=== PATIENT | male | born 1955 | race Caucasian/White ===

== ENCOUNTER 2019-10-07 06:28 | Day surgery (SDC) | payer MEDICAID ==
[2019-10-07] MEDS ORDERED: Lactated Ringers 1,000 ML IV SCH (07:00)
[2019-10-07] MEDS ORDERED: Propofol 200 MG/20 ML SDV ONE (07:13)
[2019-10-07] MEDS ORDERED: Midazolam 1 MG/ML 2 ML SDV ONE (07:13)
[2019-10-07] MEDS ORDERED: fentaNYL 100 MCG/2 ML SDV ONE (07:13)
[2019-10-07 09:02] VITALS: BP 125/77; PULSE 82
--- NOTE | 2019-10-07 15:34 | OR ---
DATE OF PROCEDURE: 10/07/2019 SURGEON: Josiah Espinal MD PREOPERATIVE DIAGNOSIS: Colon cancer screening. POSTOPERATIVE DIAGNOSES: Diverticulosis, small right colon polyp. PROCEDURE: Colonoscopy to the cecum with biopsy resection of small right colon polyp. ANESTHESIA: IV anesthesia with monitored anesthesia care. INDICATION: This 64-year-old white male is referred for a colonoscopy for colon cancer screening. He says his last colonoscopic exam was done about 10 years ago. I counseled him for the procedure including risks and alternatives, and he gave his informed consent to proceed. DESCRIPTION OF PROCEDURE: The patient was placed in the left lateral decubitus position. IV anesthesia was administered by the Anesthesia Service. Time-out was held. A rectal exam was performed, which was unremarkable. The flexible video Olympus colonoscope was introduced through his anus, up his rectum, out his colon all the way to the cecum. En route, we saw a very few scattered left-sided diverticula. There was no bleeding or inflammation associated with any of them. Once the cecum was reached, the scope was slowly withdrawn examining the mucosa throughout. In the right colon, we saw a small polyp which was removed with a couple of bites of biopsy forceps. The scope was withdrawn further with no other new lesions noted. The scope was retroflexed in the rectum with the distal rectum appearing unremarkable. The scope was straightened and removed. He tolerated the procedure well. Josiah Espinal MD /[id number]
== END 2019-10-07 09:09 | disposition home or self-care (01) ==
LOC: JP.SDS 06:28
PROVIDERS: ATTEND Surgery
DX: Z12.11 Encounter for screening for malignant neoplasm of colon (principal); D12.2 Benign neoplasm of ascending colon; K57.30 Diverticulosis of large intestine without perforation or abscess without bleeding; I10 Essential (primary) hypertension; G47.33 Obstructive sleep apnea (adult) (pediatric); E66.9 Obesity, unspecified; Z99.89 Dependence on other enabling machines and devices
CPT/HCPCS: 88305; J2250; J2704; J3010

== ENCOUNTER 2025-05-23 14:45 | Emergency (ER) | payer MEDICARE ==
[2025-05-23] MEDS ORDERED: Sodium Chloride 0.9% 10 ML Syringe FLUSH PRN (15:41)
[2025-05-23 16:01] LABS: BASOPHILS ABSOLUTE AUTO 0.05 K/uL (0.00-0.10); BASOPHILS PERCENT AUTO 0.9 % (0.1-1.3); EOSINOPHILS ABSOLUTE AUTO 0.11 K/uL (0.00-0.40); EOSINOPHILS PERCENT AUTO 1.9 % (0.0-5.4); IMMATURE GRAN PERCENT AUTO 0.3 % (0.0-0.7); LYMPHOCYTES ABSOLUTE AUTO 1.03 K/uL (0.8-3.3); LYMPHOCYTES PERCENT AUTO 17.7 % (11.4-47.7); MONOCYTES ABSOLUTE AUTO 0.46 K/uL (0.20-0.90); MONOCYTES PERCENT AUTO 7.9 % (3.3-12.6); NEUTROPHILS ABSOLUTE AUTO 4.16 K/uL (1.0-7.6); NEUTROPHILS PERCENT AUTO 71.3 % (40.0-78.1); PLATELET COUNT,PLT 138 K/uL (130-375); RED BLOOD CELL COUNT 5.38 M/uL (4.14-5.76); WHITE BLOOD CELL COUNT,WBC 5.8 K/uL (3.2-11.0)
[2025-05-23 16:06] LABS: IMMATURE GRAN ABSOLUTE AUTO 0.02 K/uL (0.00-0.23)
[2025-05-23 16:19] LABS: A/G RATIO 1.3 (1.2-2.2); ALANINE AMINOTRANSFERASE,ALT 63 U/L (12-78); ASPARTATE AMNIOTRANSFERASE,AST 45 U/L (15-37); BILIRUBIN TOTAL 0.6 mg/dL (0.2-1.0); BLOOD UREA NITROGEN,BUN 16 mg/dL (7-18); CARBON DIOXIDE,CO2 29 mmol/L (21-32); CHLORIDE,CL 106 mmol/L (100-108); CREATININE 1.1 mg/dL (0.8-1.3); EST CRCL DRUG DOSING (CG) 67.50 mL/min; ESTIMATED GFR 73 mL/min (>60); GLUCOSE RANDOM 129 mg/dL (74-106); POTASSIUM,K 3.5 mmol/L (3.6-5.2); PROTEIN TOTAL,TP 6.8 g/dL (6.4-8.2); SODIUM,NA 142 mmol/L (140-148)
[2025-05-23 16:43] VITALS: BP 123/61; PULSE 67
== END 2025-05-23 17:47 | disposition home or self-care (01) ==
LOC: JP.ED 14:45
DX: R55 Syncope and collapse (principal); I10 Essential (primary) hypertension; E66.9 Obesity, unspecified; Z79.899 Other long term (current) drug therapy
CPT/HCPCS: 36415; 80053; 83735; 85025; 86140; 93005; 96360; 96361; 99284; J7030

== ENCOUNTER 2025-10-04 09:58 | Emergency (ER) | payer MEDICARE ==
[2025-10-04 10:34] LABS: BASOPHILS ABSOLUTE AUTO 0.06 K/uL (0.00-0.10); BASOPHILS PERCENT AUTO 1.1 % (0.1-1.3); EOSINOPHILS ABSOLUTE AUTO 0.16 K/uL (0.00-0.40); EOSINOPHILS PERCENT AUTO 3.0 % (0.0-5.4); IMMATURE GRAN PERCENT AUTO 0.4 % (0.0-0.7); LYMPHOCYTES ABSOLUTE AUTO 1.12 K/uL (0.8-3.3); LYMPHOCYTES PERCENT AUTO 20.7 % (11.4-47.7); MONOCYTES ABSOLUTE AUTO 0.45 K/uL (0.20-0.90); MONOCYTES PERCENT AUTO 8.3 % (3.3-12.6); NEUTROPHILS ABSOLUTE AUTO 3.60 K/uL (1.0-7.6); NEUTROPHILS PERCENT AUTO 66.5 % (40.0-78.1); PLATELET COUNT,PLT 178 K/uL (130-375); RED BLOOD CELL COUNT 5.66 M/uL (4.14-5.76); WHITE BLOOD CELL COUNT,WBC 5.4 K/uL (3.2-11.0)
[2025-10-04 10:36] LABS: IMMATURE GRAN ABSOLUTE AUTO 0.02 K/uL (0.00-0.23)
[2025-10-04 10:49] VITALS: PULSE 78
[2025-10-04 10:59] LABS: LACTIC ACID 2.2 mmol/L (0.4-2.0)
[2025-10-04 11:10] LABS: A/G RATIO 1.2 (1.2-2.2); ALANINE AMINOTRANSFERASE,ALT 56 U/L (12-78); ASPARTATE AMNIOTRANSFERASE,AST 43 U/L (15-37); BILIRUBIN TOTAL 0.7 mg/dL (0.2-1.0); BLOOD UREA NITROGEN,BUN 14 mg/dL (7-18); CARBON DIOXIDE,CO2 27 mmol/L (21-32); CHLORIDE,CL 106 mmol/L (100-108); CREATININE 1.2 mg/dL (0.8-1.3); EST CRCL DRUG DOSING (CG) 61.88 mL/min; ESTIMATED GFR 65 mL/min (>60); GLUCOSE RANDOM 140 mg/dL (74-106); POTASSIUM,K 3.8 mmol/L (3.6-5.2); PRO B-TYPE NATRIUR PEPT,BNPPRO 9.0 pg/mL (5-125); PROTEIN TOTAL,TP 7.1 g/dL (6.4-8.2); SODIUM,NA 141 mmol/L (140-148); TROPONIN I HIGH SENSITIVITY 10.9 pg/mL (<=60.3); TSH ULTRASENSITIVE 2.125 uIU/mL (0.358-3.740)
[2025-10-04 12:19] LABS: APPEARANCE,URINE CLEAR (CLEAR); GLUCOSE,URINE NEGATIVE (NEGATIVE); OCCULT BLOOD,URINE NEGATIVE (NEGATIVE)
[2025-10-04 12:53] LABS: LACTIC ACID 1.5 mmol/L (0.4-2.0)
[2025-10-04 13:23] VITALS: BP 140/77
== END 2025-10-04 13:25 | disposition home or self-care (01) ==
LOC: JP.ED 09:58
DX: I95.1 Orthostatic hypotension (principal); E86.0 Dehydration; T46.7X5A Adverse effect of peripheral vasodilators, initial encounter; I10 Essential (primary) hypertension; E66.9 Obesity, unspecified; Z79.899 Other long term (current) drug therapy; Z68.36 Body mass index [BMI] 36.0-36.9, adult
CPT/HCPCS: 36415; 80053; 81003; 83605; 83880; 84443; 84484; 85025; 93005; 93010; 96360; 99284; J7030